=== PATIENT | male | born 1975 | race Caucasian/White ===

== ENCOUNTER 2017-03-24 22:40 | Emergency (ER) | payer OTHER ==
[~2017-03-24] VITALS: Ht 177.8 cm; Wt 74.8 kg
--- NOTE | 2017-03-24 23:43 | ED GENERAL ADULT ---
History of Present Illness General Chief Complaint: Major Burn/Smoke Inhalation Stated Complaint: "PER PT RT ARM BURN ?INFECTED" Source: patient Exam Limitations: no limitations Vital Signs & Intake/Output Vital Signs & Intake/Output Vital Signs Date Time Temp Pulse Resp B/P B/P Pulse O2 O2 Flow FiO2 Mean Ox Delivery Rate 03/25 0039 63 20 136/80 100 Room Air 03/24 2247 98.2 78 18 142/86 98 Room Air ED Intake and Output 03/25 0000 03/24 1200 Intake Total Output Total Balance Patient 165 lb Weight Weight Reported by Patient Measurement Method Allergies Coded Allergies: aspirin (UNKNOWN 03/24/17) Reconcile Medications Amoxicillin/Potassium Clav (Augmentin 875-125 Tablet) 875 MG-125 MG TABLET 1 TAB PO BID INFECTION Triage Note: PT OT TRIAGE WITH ?INFECTION TO SKIN BURN TO RIGHT FOREARM S/P BURN ON OVEN DOOR 5DAYS AGO. C/O REDNESS AROUND BURN AND INCREASING PRESSURE TO SITE. ALSO PT HAD FEVER YESTERDAY. AFEBRILE IN TRIAGE. VSS. Triage Nurses Notes Reviewed? yes Onset: Abrupt Duration: day(s): (2) Timing: recent history Injury Environment: home Severity: mild Associated Symptoms: SORE THROAT, FEVER HPI: This is a 41-year-old male presents to ER with chief complaint of burn to right forearm that he sustained 5 days ago while at work on a sign of an oven door. He states the burn looked fine until 2 days ago and outstretched look little red. He says there is minimal drainage from the area. Yesterday also noted a fever in the morning. He also complains of some sore throat. Denies any shaking chills. Denies any chest pain. He said he has pain when he swallows. Denies any sick contacts at work or at home. Patient reports tetanus is up-to- date. Past History Travel History Traveled to [place] past 21 day No Medical History Any Pertinent Medical History? see below for history Neurological: NONE EENT: NONE Cardiovascular: NONE Respiratory: NONE Gastrointestinal: NONE Hepatic: NONE Renal: NONE Musculoskeletal: NONE Psychiatric: NONE Endocrine: NONE Blood Disorders: NONE Cancer(s): NONE Surgical History Surgical History: non-contributory Psychosocial History What is your primary language Greek Tobacco Use: Current Daily Use Daily Tobacco Use Amount/Type: => 5 Cigarettes daily Family History Hx Contributory? No Review of Systems Review of Systems Constitutional: Reports: fever. Denies: chills. EENTM: Reports: throat pain. Respiratory: Denies: cough, short of breath. Cardiovascular: Denies: chest pain, palpitations. GI: Denies: abdominal pain. Genitourinary: Reports: no symptoms. Musculoskeletal: Reports: no symptoms. Skin: Reports: see HPI (INFECTION OVER BURN). Neurological/Psychological: Reports: no symptoms. Hematologic/Endocrine: Reports: no symptoms. Immunologic/Allergic: Reports: no symptoms. All Other Systems: Reviewed and Negative Physical Exam Physical Exam General Appearance: well developed/nourished, alert, awake Head: atraumatic, normal appearance Eyes: Bilateral: normal appearance, PERRL, EOMI. Ears, Nose, Throat: PHARYNGEAL ERYTHEMA, TONSILLAR EXUDATES. Neck: normal inspection, supple, full range of motion Respiratory: normal breath sounds, chest non-tender, no respiratory distress Cardiovascular: regular rate/rhythm Neurologic/Psych: awake, alert Skin: RIGHT FOREARM BURN WITH MILD ERYTHEMA AROUND WOUND Core Measures ACS in differential dx? No CVA/TIA Diagnosis: No Severe Sepsis Present: No Septic Shock Present: No Progress Differential Diagnoses I considered the following diagnoses in my evaluation of the patient: [INFECTED PARTIAL THICKNESS BURN, STREP PHARYNGITIS] Plan of Care: Orders Procedure Date/time Status THROAT CULTURE W/QUICK STREP 03/24 2342 Complete Initial ED EKG: none Departure Departure Time of Disposition: 9 Disposition: HOME OR SELF CARE Condition: Stable Clinical Impression Primary Impression: Partial thickness burn of forearm Secondary Impressions: Skin infection, Strep pharyngitis Referrals: PATIENT HAS NO PRIMARY CARE DR (PCP/Family) Additional Instructions: TAKE THE AUGMENTIN DIRECTED. MOTRIN OR TYLENOL NEEDED FOR FEVER/PAIN. FOLLOW UP WITH YOUR DOCTOR IN THE OFFICE. RETURN NEEDED. Departure Forms: [employer] Employee Industrial Acc[employer] General Discharge Information Prescriptions: Current Visit Scripts Amoxicillin/Potassium Clav (Augmentin 875-125 Tablet) 1 TAB PO BID #20 TAB Critical Care Note Critical Care Note Critical Care Time: non-applicable
[2017-03-25] MEDS ORDERED: AUGMENTIN 875-1 EACH PO (00:24)
[2017-03-25 00:39] VITALS: BP 136/80
== END 2017-03-25 00:41 ==
LOC: ERH 22:40
DX: T22.211A Burn of second degree of right forearm, initial encounter (principal); L08.9 Local infection of the skin and subcutaneous tissue, unspecified; J02.0 Streptococcal pharyngitis; X15.0XXA Contact with hot stove (kitchen), initial encounter; Y92.9 Unspecified place or not applicable; Y93.9 Activity, unspecified